=== PATIENT | female | born 1955 | race American Indian/Alaskan Native ===

== ENCOUNTER 2016-08-06 09:17 | Outpatient (CLI) | payer MEDICARE ==
--- NOTE | 2016-08-06 14:59 | Mammography Report ---
BILATERAL DIGITAL SCREENING MAMMOGRAM with CAD: 08/06/16 CLINICAL: Routine screening. COMPARISON:None available. However, a prior mammogram was apparently done at [facility] in 2016. FINDINGS: The breasts are heterogeneously dense, which may obscure small masses. Bilateral biopsy clips. 2 biopsy clips in the upper right breast and a single biopsy clip in the outer left breast. 2 groups of clustered right outer calcifications require comparison with the prior mammogram. Calcifications are more dispersed on the MLO view. No mass or architectural distortion. The left breast is negative. IMPRESSION: Right calcifications requiring further evaluation. BI-RADS CATEGORY: 0 -- Additional Evaluation Required RECOMMENDATION: Comparison with a previous mammogram. We will attempt to obtain a prior mammogram from [facility]. If we do not obtain a prior mammogram for comparison within 30 days, a revised report will be issued recommending a recall. Please be advised that the patient should not schedule an appointment for return until adequate time (at least 2 weeks) has passed for us to obtain the prior mammogram. ACR BI-RADS MAMMOGRAPHIC CODES: 0 = Needs additional imaging evaluation; 1 = Negative; 2 = Benign; 3 = Probably benign; 4 = Suspicious; 5 = Malignant; 6 = Known biopsy-proven malignancy COMMENT: 1. Dense breast tissue, i.e., adenosis, fibrocystic changes, etc., may obscure an underlying neoplasm. 2. Approximately 10% of cancers are not detected with mammography. 3. A negative mammography report should not delay biopsy if a clinically suspicious mass is present. COMMENT: Patient follow-up letters are generated via our [employer] application.
== END 2016-08-06 09:18 | disposition home or self-care (01) ==
LOC: SPVWC 09:17
PROVIDERS: ATTEND Internal Medicine
DX: Z12.31 Encounter for screening mammogram for malignant neoplasm of breast (principal)
CPT/HCPCS: 77067; G0202

== ENCOUNTER 2019-03-28 18:40 | Emergency (ER) | payer MEDICARE ==
[2019-03-28 22:21] VITALS: BP 157/93
--- NOTE | 2019-03-28 22:54 | Emergency Department Report ---
ED Eye Problem HPI - General Chief complaint: Head Injury Stated complaint: EYE INJURY Time Seen by Provider: 03/28/19 22:46 Source: patient Mode of arrival: Ambulatory Limitations: No Limitations - History of Present Illness MD chief complaint: eye pain, eye injury Location: right eye If Injury: none Eye Symptoms: pain Severity: moderate If Pain, Quality: aching Consistency: constant - Related Data Home Medications Medication Instructions Recorded Confirmed Last Taken RX: Estradiol [Elestrin] 05/05/13 05/05/13 Unknown RX: Lovastatin [Mevacor] 05/05/13 05/05/13 Unknown RX: Triamter/Hctz 37.5-25 mg 05/05/13 05/05/13 Unknown [Maxzide-25] Previous Rx's Medication Instructions Recorded Last Taken Type Cyclobenzaprine HCl [FLEXERIL] 10 mg PO TID PRN #15 tablet 05/05/13 Unknown Rx HYDROcodone/APAP 5-325 [[place] 1 each PO Q6HR PRN #15 tablet 05/05/13 Unknown Rx 5/325 mg] RX: Ibuprofen [Motrin 200 MG tab] 400 mg PO TID #60 tablet 05/05/13 Unknown Rx RX: Prednisone 20 mg PO QDAY #5 tablet 05/05/13 Unknown Rx Ketorolac Tromethamin 0.4%(Nf) 1 drop OP QID #1 bottle 03/29/19 Unknown Rx [Acular Ls 0.4% Ophth Tova] Allergies Allergy/AdvReac Type Severity Reaction Status Date / Time cephalexin monohydrate Allergy Rash Verified 05/05/13 17:13 [From Keflex] Penicillins Allergy Rash Verified 05/05/13 17:13 ED Review of Systems ROS: Stated complaint: EYE INJURY Other details as noted in HPI Comment: All other systems reviewed and negative ED Past Medical Hx - Past Medical History Previous Medical History?: Yes Hx Hypertension: Yes Additional medical history: high chol, anemia, chronic back pain - Surgical History Past Surgical History?: Yes Additional Surgical History: Hysterectomy - Social History Smoking Status: Never Smoker Substance Use Type: None - Medications Home Medications: Home Medications Medication Instructions Recorded Confirmed Last Taken Type Cyclobenzaprine HCl [FLEXERIL] 10 mg PO TID PRN #15 tablet 05/05/13 Unknown Rx HYDROcodone/APAP 5-325 [[place] 1 each PO Q6HR PRN #15 tablet 05/05/13 Unknown Rx 5/325 mg] RX: Estradiol [Elestrin] 05/05/13 05/05/13 Unknown History RX: Ibuprofen [Motrin 200 MG tab] 400 mg PO TID #60 tablet 05/05/13 Unknown Rx RX: Lovastatin [Mevacor] 05/05/13 05/05/13 Unknown History RX: Prednisone 20 mg PO QDAY #5 tablet 05/05/13 Unknown Rx RX: Triamter/Hctz 37.5-25 mg 05/05/13 05/05/13 Unknown History [Maxzide-25] Ketorolac Tromethamin 0.4%(Nf) 1 drop OP QID #1 bottle 03/29/19 Unknown Rx [Acular Ls 0.4% Ophth Tova] ED Physical Exam - General Limitations: No Limitations General appearance: alert, in no apparent distress - Head Head exam: Present: atraumatic, normocephalic - Eye Eye exam: Present: normal appearance, PERRL, EOMI. Absent: scleral icterus, conjunctival injection, nystagmus, periorbital swelling, periorbital tenderness Pupils: Present: normal accommodation - Expanded Eye Exam Expanded Pupils: Regular, Round: Bilateral Sclera/Conjunctival: Normal Inspection: Bilateral (negative fluorescein uptake) Anterior chamber: Normal Inspection: Bilateral Posterior chamber: Normal Inspection: Bilateral - ENT ENT exam: Present: normal exam, normal orophraynx, mucous membranes moist, TM's normal bilaterally - Neck Neck exam: Present: normal inspection, full ROM. Absent: tenderness, meningismus, lymphadenopathy, thyromegaly - Respiratory Respiratory exam: Present: normal lung sounds bilaterally. Absent: respiratory distress, wheezes, rales, rhonchi - Cardiovascular Cardiovascular Exam: Present: regular rate, normal rhythm. Absent: systolic murmur, diastolic murmur, rubs, gallop - GI/Abdominal GI/Abdominal exam: Present: soft, normal bowel sounds - Extremities Exam Extremities exam: Present: normal inspection - Back Exam Back exam: Present: normal inspection - Neurological Exam Neurological exam: Present: alert, oriented X3 - Psychiatric Psychiatric exam: Present: normal affect, normal mood - Skin Skin exam: Present: warm, dry, intact, normal color. Absent: rash ED Course Vital Signs 03/28/19 22:12 Temperature 98.5 F Pulse Rate 77 Respiratory 17 Rate Blood Pressure 157/93 [Left] O2 Sat by Pulse 98 Oximetry Critical care attestation.: If time is entered above; I have spent that time in minutes in the direct care of this critically ill patient, excluding procedure time. ED Disposition Clinical Impression: Pain, eye, left Disposition: DC-01 TO HOME OR SELFCARE Is pt being admited?: No Does the pt Need Aspirin: No Condition: Stable Instructions: Eye Pain (ED) Prescriptions: Ketorolac Tromethamin 0.4%(Nf) [Acular Ls 0.4% Ophth Tova] 1 drop OP QID #1 bottle Referrals: PRIMARY CARE, [Primary Care Provider] - 3-5 Days
[2019-03-28] MEDS ORDERED: FLUORESCEIN 1 MG STRIP OP STA (22:57)
[2019-03-28] MEDS ORDERED: TETRACAINE 0.5% OPHTH SOLN 4ML OU STA (22:57)
== END 2019-03-29 01:00 | disposition home or self-care (01) ==
LOC: ED 18:40
DX: H57.12 Ocular pain, left eye (principal); I10 Essential (primary) hypertension; E78.00 Pure hypercholesterolemia, unspecified; M54.9 Dorsalgia, unspecified; G89.29 Other chronic pain; Z79.1 Long term (current) use of non-steroidal anti-inflammatories (NSAID); Z86.2 Personal history of diseases of the blood and blood-forming organs and certain disorders involving the immune mechanism; Z88.1 Allergy status to other antibiotic agents; Z88.0 Allergy status to penicillin; Z88.8 Allergy status to other drugs, medicaments and biological substances; Z79.899 Other long term (current) drug therapy
CPT/HCPCS: 99282

== ENCOUNTER 2019-04-29 09:14 | Outpatient (CLI) | payer MEDICARE ==
--- NOTE | 2019-05-02 11:06 | Mammography Report ---
DIGITAL SCREENING MAMMOGRAM WITH CAD, 04/29/2019 INDICATION: Routine screening mammography. TECHNIQUE: Digital bilateral 2D mammography was obtained in the craniocaudal and mediolateral obliq ue projections. This examination was interpreted with the benefit of Computer-Aided Detection analysi s. COMPARISON: 04/20/2018 FINDINGS: Breast Density: The breasts are heterogeneously dense, which may obscure small masses. There is no evidence of dominant mass, suspicious calcifications or architectural distortion in eithe r breast. 2 right upper biopsy clips and a left outer biopsy clip. Bilateral calcifications with aly gn morphology. IMPRESSION: No mammographic evidence of malignancy. Follow up recommendation: Routine yearly BI-RADS Category 2: Benign. A "normal" or negative report should not discourage follow up or biopsy of a clinically significant f inding. A written summary of these findings will be mailed to the patient. The patient will be entered into a mammography reporting system which will generate a reminder letter for the patient's next appointmen t at the appropriate interval. The [employer] recommends yearly mammograms starting at age 40 and continuing as l ct as a woman is in good health. Breast MRI is recommended for women with an approximate 20-25% or greater lifetime risk of breast cancer, including women with a strong family history of breast or ova alpesh cancer or who have been treated for Hodgkin's disease. Signer Name: Agapito Williamson MD Signed: 05/02/2019 11:02 AM Workstation Name: [id number]
== END 2019-04-29 09:15 | disposition home or self-care (01) ==
LOC: SPVWC 09:14
PROVIDERS: ATTEND Internal Medicine
DX: Z12.31 Encounter for screening mammogram for malignant neoplasm of breast (principal)
CPT/HCPCS: 77067